=== PATIENT | male | born 1950 | race Caucasian/White ===

== ENCOUNTER → 2021-01-07 | Outpatient (CLI) | payer MEDICARE | LOC: M.ULTRA 01-04 08:00 | PROVIDERS: ATTEND Internal Medicine | DX: N28.1 Cyst of kidney, acquired (principal); I70.1 Atherosclerosis of renal artery; I77.73 Dissection of renal artery ==

== ENCOUNTER 2021-01-21 16:26 | Inpatient (IN) | payer MEDICARE ==
[~2021-01-21] VITALS: Ht 170.2 cm; Wt 105.2 kg
[2021-01-21 16:31] VITALS: BP 181/126
[2021-01-21] MEDS ORDERED: LASIX 40 MG TAB40 MG PO (16:45)
[2021-01-21] MEDS ORDERED: TRAMADOL 50 MG50 MG PO (16:45)
[2021-01-21] MEDS ORDERED: ASA81BEC PO (16:45)
[2021-01-21] MEDS ORDERED: FLONASE 0.05%50 MCG NARES (16:46)
[2021-01-21] MEDS ORDERED: NEBULIZER MISCELL (16:46)
[2021-01-21 16:47] LABS: ABSOLUTE BASOPHILS 0.1 thou/uL (0.0-0.2); ABSOLUTE LYMPHOCYTES 1.1 thou/uL (0.8-5.3); ABSOLUTE MONOCYTES 0.7 thou/uL (0.0-1.2); BASOPHILS 0.8 %; EOSINOPHILS 0.5 %; HEMATOCRIT 47.7 % (42.0-52.0); HEMOGLOBIN 16.8 gm/dL (14.0-18.0); LYMPHOCYTES 13.9 %; MCH 34.3 pg (26.0-34.0); MCHC 35.2 g/dL (28.0-37.0); MCV 97.3 fL (80.0-100.0); MONOCYTES 8.4 %; MPV 8.2 fl. (7.2-11.1); NUCLEATED RBCS 0 /100WBC; PLATELET COUNT* 198 thou/uL (150-400); POLYS 76.4 %; RBC 4.91 mil/uL (4.50-6.00); RDW-CV 13.8 % (10.5-14.5); WBC 7.9 thou/uL (4.0-11.0)
[2021-01-21 16:53] LABS: CREATININE 1.1 mg/dL (0.6-1.3); POTASSIUM 3.9 mmol/L (3.5-5.1)
[2021-01-21 17:04] LABS: MAGNESIUM 2.1 mg/dL (1.8-2.4); TOTAL BILIRUBIN 0.8 mg/dL (<0.1-1.0); TOTAL PROTEIN 7.3 g/dL (6.4-8.2)
[2021-01-21 22:00] VITALS: BP 167/108
[2021-01-22 02:10] VITALS: BP 136/93
[2021-01-22 06:03] VITALS: BP 158/95
[2021-01-22 10:00] VITALS: BP 131/96
--- NOTE | 2021-01-22 13:09 | NUR ---
Admission Assessment Admitted from AMBULANCE Mental Status upon admission A&O X3 Living Arrangements: HOUSE Lives with: or they live with patient ALONE Support system: Name Phone number Taylor SKAGGS [phone] DAUGHTER Can patient return to prior living arrangements? YES Activities of daily living: Independent Assistive device: CANE, WALKER, SHOWER CHAIR
[2021-01-22 14:00] VITALS: BP 160/109
--- NOTE | 2021-01-22 14:33 | NUR ---
BEDSIDE ECHO BEING DONE AT THIS TIME.
[2021-01-22 15:03] VITALS: BP 160/109
--- NOTE | 2021-01-22 15:27 | EKG ---
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1950 Requested By: Frantz Lunsford Order Number: [id number] MD: Marquis Das Measurements Intervals [place] Rate: 94 P: 27 MT: 181 QRS: -41 QRSD: 101 T: 1 QT: 361 QTc: 452 Interpretive Statements Sinus tachycardia Multiple premature complexes, vent & supraven Left axis deviation possible inferior scar Borderline T wave abnormalities No previous ECG available for comparison Electronically Signed On 01-22-2021 15:27:22 CDT by Marquis Das [email or web address] <ELECTRONICALLY SIGNED> By: Marquis Das MD, [facility] 01/22/21 1527 1639 1639 Marquis Das MD, [facility] /EPI
[2021-01-22] MEDS ORDERED: OSTERA TABLET1 EAC1 PO (15:44)
[2021-01-22] MEDS ORDERED: CULTURELLE KID1 EAC1 PO (15:44)
[2021-01-22] MEDS ORDERED: DULCOLAX STOOL100 M1 PO (15:45)
[2021-01-22] MEDS ORDERED: PRESERVISION A1 EACH PO (15:45)
[2021-01-22] MEDS ORDERED: GLYCOTROL CAPS1 EACH PO (15:46)
[2021-01-22] MEDS ORDERED: THERALITH XR T1 EACH PO (15:46)
[2021-01-22 16:05] VITALS: BP 174/101
--- NOTE | 2021-01-22 16:07 | NUR ---
PT ADMITTED WITH AFIB RVR, CARDEZIM DRIP RUNNING. PT ORIENTED TO ROOM. FALL RISK PRECAUTIONS IN PLACE. VITALS OBTAINED. HEART MONITOR IN PLACE.
--- NOTE | 2021-01-22 16:34 | 2DMMODE ---
[place] [address] 2 D/M-MODE ECHOCARDIOGRAM Name: NALINIMARIFER MUSTAFA Room: [address] IN [facility]#: [id number] Admission: 01/21/21 Attend Phys: Kristie Thomas, Discharge: Date of : 48 Date of Service: 01/22/21 1634 Report #: [id number] THIS REPORT FOR: cc: Shawn Coates MD, Dean L. MD Liston, Michael J. MD [facility] ~ APPROVED REPORT Study performed: 01/22/2021 14:16:07 EXAM: Comprehensive 2D, Doppler, and color-flow Echocardiogram Patient Location: In-Patient Room #: er Status: routine BSA: 2.15 HR: 82 bpm BP: 121/92 mmHg Rhythm: NSR Other Information Study Quality: Good Indications Atrial Fibrillation 2D Dimensions IVSd: 12.30 (7-11mm) LVOT Diam: 22.92 (18-24mm) LVDd: 55.74 mm PWd: 11.20 (7-11mm) Ascending Ao: 40.44 (22-36mm) LVDs: 40.26 (25-40mm) Aortic Root: 40.88 mm Volumes Left Atrial Volume (Systole) LA ESV Index: 27.80 mL/m2 Aortic Valve AoV Peak Costa.: 1.27 m/s AO Peak Gr.: 6.46 mmHg LVOT Max P.41 mmHg AO Mean Gr.: 3.59 mmHg LVOT Mean P.59 mmHg LVOT Max V: 0.92 m/s AO V2 VTI: 23.03 cm LVOT Mean V: 0.57 m/s JASEN (VTI): 3.08 cm2 LVOT V1 VTI: 17.20 [place] [address] 2 D/M-MODE ECHOCARDIOGRAM Name: MARIFER WATSON Room: [address] IN ..#: [id number] Admission: 01/21/21 Attend Phys: Kristie Thomas, Discharge: Date of : 48 Date of Service: 01/22/21 1634 Report #: [id number] Mitral Valve E/A Ratio: 0.61 MV Decel. Time: 259.42 ms MV E Max Costa.: 0.61 m/s MV PHT: 75.23 ms MVA (PHT): 2.92 cm2 TDI E/Lateral E': 12.20 E/Medial E': 12.20 Medial E' Costa.: 0.05 m/s Lateral E' Costa.: 0.05 m/s Pulmonary Valve PV Peak Costa.: 0.72 m/s PV Peak Gr.: 2.10 mmHg Left Ventricle The left ventricle is normal size. There is normal LV segmental wall motion. Mild concentric left ventricular hypertrophy. Left ventricular systolic function is normal. LVEF is 55-60%. Grade I - abnormal relaxation pattern. Right Ventricle Right ventricle is mildly dilated. The right ventricular systolic function is normal. Atria Left atrium is mildly dilated. Right atrium is mildly dilated. Aortic Valve The aortic valve is normal in structure. Mild aortic regurgitation. There is no aortic valvular stenosis. Mitral Valve The mitral valve is normal in structure. Trace mitral regurgitation. No evidence of mitral valve stenosis. Tricuspid Valve The tricuspid valve is normal in structure. Trace tricuspid regurgitation. Unable to assess PA pressure. Pulmonic Valve The pulmonary valve is normal in structure. There is no pulmonic valvular regurgitation. [place] [address] 2 D/M-MODE ECHOCARDIOGRAM Name: MARIFER WATSON Room: [address] IN [facility]#: [id number] Admission: 01/21/21 Attend Phys: Kristie Thomas, Discharge: Date of : 48 Date of Service: 01/22/21 1634 Report #: [id number] The aortic root is normal in size. The ascending aorta is mildly dilated. IVC is normal in size and collapses >50% with inspiration. Pericardium There is no pericardial effusion. <Conclusion> The left ventricle is normal size. Mild concentric left ventricular hypertrophy. Left ventricular systolic function is normal. LVEF is 55-60%. Grade I - abnormal relaxation pattern. There is normal LV segmental wall motion. Right ventricle is mildly dilated. Left atrium is mildly dilated. Right atrium is mildly dilated. Mild aortic regurgitation. Trace mitral regurgitation. Trace tricuspid regurgitation. IVC is normal in size and collapses >50% with inspiration. The ascending aorta is mildly dilated. <ELECTRONICALLY SIGNED> By: Pipo Shearer MD, FACC 01/22/21 1634 1634 1634 Pipo Shearer MD, FACC /INF
--- NOTE | 2021-01-22 17:30 | NUR ---
PT REMAINED ALERT AND ORIENTED. PT RESTING IN BED. AMIODARONE DRIP STARTED ONE TIME. AFIB ON MONITOR. FALL RISK PRECAUTIONS IN PLACE. HOURLY ROUNDING COMPLETED. CALL LIGHT WITHIN REACH.
[2021-01-23 00:42] VITALS: BP 135/91
[2021-01-23 04:00] VITALS: BP 150/99
[2021-01-23 04:42] LABS: HEMATOCRIT 49.1 % (42.0-52.0); HEMOGLOBIN 17.1 gm/dL (14.0-18.0); MCH 34.1 pg (26.0-34.0); MCHC 34.7 g/dL (28.0-37.0); MCV 98.1 fL (80.0-100.0); MPV 8.3 fl. (7.2-11.1); NUCLEATED RBCS 0 /100WBC; PLATELET COUNT* 205 thou/uL (150-400); RBC 5.01 mil/uL (4.50-6.00); RDW-CV 14.1 % (10.5-14.5); WBC 9.4 thou/uL (4.0-11.0)
[2021-01-23 04:51] LABS: POTASSIUM 4.3 mmol/L (3.5-5.1)
--- NOTE | 2021-01-23 06:30 | NUR ---
PT VOICED NO CONCERNS THIS SHIFT, AFIB ON JUICE STANDARDIZER AT START OF SHIFT. PT CONVERTED TO SR WITH PVCS PACS AT APPROX 2300. PT DENIES CHEST PAIN THIS SHIFT. HOURLY ROUDNING COMPLETED. CALL LIGHT WITHIN REACH.
[2021-01-23 07:24] LABS: ABSOLUTE LYMPHOCYTES 0.6 thou/uL (0.8-5.3); ABSOLUTE MONOCYTES 0.1 thou/uL (0.0-1.2); ABSOLUTE NEUTROPHILS 8.7 thou/uL (1.6-8.1); ANISOCYTOSIS 1+; PLATELET ESTIMATE ADEQUATE; POIKILOCYTOSIS 1+
[2021-01-23] MEDS ORDERED: XARELTO20 MG PO (07:57)
[2021-01-23] MEDS ORDERED: DOXYCYCLINE 10100 MG PO (07:59)
[2021-01-23] MEDS ORDERED: VENTOLIN HFA 1818 GM INH (07:59)
[2021-01-23] MEDS ORDERED: PROTONIX40 M4 PO (07:59)
[2021-01-23] MEDS ORDERED: PREDNISONE 10 M10 MG PO (07:59)
[2021-01-23 08:42] VITALS: BP 167/106
[2021-01-23] MEDS ORDERED: DILTIAZEM 24HR240 M1 PO (09:40)
[2021-01-23] MEDS ORDERED: PACERONE 200 M200 M1 PO (09:40)
[2021-01-23] MEDS ORDERED: CARVEDILOL3.125 MG PO (09:40)
[2021-01-23 10:18] VITALS: BP 167/106
[2021-01-23 11:53] VITALS: BP 145/88
--- NOTE | 2021-01-23 13:46 | NUR ---
Pt discharging to home today, declined HH. Await RT to complete ex ox to determine if Pt will need o2 at dc. Following
--- NOTE | 2021-01-23 14:12 | EKG ---
[place] [address] ELECTROCARDIOGRAM REPORT Name: NALINIDAMIENMARIFER FREITAS Room: [address] ADM IN M.R.#: [id number] Admission: 01/21/21 Attend Phys: Kristie Thomas, Discharge: Date of : 48 Date of Service: 01/22/21 1457 Report #: [id number] THIS REPORT FOR: //name// 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1950 Requested By: Frantz Lunsford Order Number: [id number] Radha MD: Marquis Das Measurements Intervals [place] Rate: 79 P: -86 PA: 168 QRS: -42 QRSD: 105 T: 11 QT: 439 QTc: 504 Interpretive Statements Sinus or ectopic atrial rhythm Left anterior fascicular block Abnormal R-wave progression, late transition Borderline T abnormalities, diffuse leads; ischemia must be considered Prolonged QT interval Compared to ECG 01/21/2021 16:39:05 Ectopic atrial rhythm now present Prolonged QT interval now present Sinus tachycardia no longer present T-wave abnormality still present Electronically Signed On 01-23-2021 14:12:21 CDT by Marquis Das [email or web address] <ELECTRONICALLY SIGNED> By: Marquis Das MD, [facility] 01/23/21 1412 1457 1457 Marquis Das MD, [facility] /EPI
--- NOTE | 2021-01-23 14:21 | EKG ---
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 : 1950 Requested By: Juli Veras Order Number: [id number] Reading MD: Marquis Das Measurements Intervals [place] Rate: 89 P: -44 IN: 163 QRS: -37 QRSD: 103 T: 191 QT: 369 QTc: 449 Interpretive Statements Sinus tachycardia Atrial premature complexes Left axis deviation Probable anterior infarct, age indeterminate Compared to ECG 01/22/2021 14:57:05 Atrial premature complex(es) now present Left-axis deviation now present Myocardial infarct finding now suggested Ectopic atrial rhythm no longer present T-wave abnormality no longer present Prolonged QT interval no longer present Electronically Signed On 01-23-2021 14:21:02 CDT by Marquis Das [email or web address] <ELECTRONICALLY SIGNED> By: Marquis Das MD, [facility] 01/23/21 1421 Marquis Das MD, [facility] /EPI
--- NOTE | 2021-01-23 15:55 | NUR ---
PT IS DISCHARGING HOME IV'S AND MONITOR DISCONTINUED MANY CONCERNS WITH PATIENT BUT DISCUSSED WITH HIM WAITING ON CAB TO GET HERE
[2021-01-23 15:56] VITALS: BP 167/106
== END 2021-01-23 16:35 | disposition home or self-care (01) | DRG 189 ==
LOC: M.ERS 16:26 → M.TBA-ER 17:23 → M.2W 01-22 15:25
PROVIDERS: Emergency Medicine Emergency Medical Services; Internal Medicine; ADMIT Internal Medicine; ATTEND Internal Medicine
DX: J96.01 Acute respiratory failure with hypoxia (principal); I42.9 Cardiomyopathy, unspecified; I48.20 Chronic atrial fibrillation, unspecified; J44.1 Chronic obstructive pulmonary disease with (acute) exacerbation; R04.2 Hemoptysis; J44.0 Chronic obstructive pulmonary disease with (acute) lower respiratory infection; J20.9 Acute bronchitis, unspecified; F43.10 Post-traumatic stress disorder, unspecified; F41.9 Anxiety disorder, unspecified; I71.4 Abdominal aortic aneurysm, without rupture; I50.9 Heart failure, unspecified; I25.10 Atherosclerotic heart disease of native coronary artery without angina pectoris; I11.0 Hypertensive heart disease with heart failure; E78.5 Hyperlipidemia, unspecified; F31.9 Bipolar disorder, unspecified; Z20.822 Contact with and (suspected) exposure to COVID-19; Z86.73 Personal history of transient ischemic attack (TIA), and cerebral infarction without residual deficits; Z79.899 Other long term (current) drug therapy; Z79.82 Long term (current) use of aspirin; Z88.0 Allergy status to penicillin; Z88.7 Allergy status to serum and vaccine; Z87.891 Personal history of nicotine dependence

== ENCOUNTER → 2021-07-08 | Outpatient (CLI) | payer MEDICARE ==
[~2021-07-08] MED LIST: ASA81BEC PO; CARVEDILOL3.125 MG PO; CULTURELLE KID1 EAC1 PO; DILTIAZEM 24HR240 M1 PO; DOXYCYCLINE 10100 MG PO; DULCOLAX STOOL100 M1 PO; FLONASE 0.05%50 MCG NARES; GLYCOTROL CAPS1 EACH PO; LASIX 40 MG TAB40 MG PO; NEBULIZER MISCELL; OSTERA TABLET1 EAC1 PO; PACERONE 200 M200 M1 PO; PREDNISONE 10 M10 MG PO; PRESERVISION A1 EACH PO; PROTONIX40 M4 PO; THERALITH XR T1 EACH PO; TRAMADOL 50 MG50 MG PO; VENTOLIN HFA 1818 GM INH; XARELTO20 MG PO
== END ==
LOC: M.ULTRA 08:10
PROVIDERS: ATTEND Internal Medicine
DX: I70.1 Atherosclerosis of renal artery (principal); I10 Essential (primary) hypertension

== ENCOUNTER → 2021-07-15 | Outpatient (CLI) | payer MEDICARE ==
[2021-07-15 08:28] LABS: CREATININE 1.2 mg/dL (0.6-1.3)
== END ==
LOC: M.LAB 07-10 08:58
PROVIDERS: ATTEND Internal Medicine
DX: Z01.812 Encounter for preprocedural laboratory examination (principal); I71.4 Abdominal aortic aneurysm, without rupture; J98.11 Atelectasis; K44.9 Diaphragmatic hernia without obstruction or gangrene; N28.1 Cyst of kidney, acquired; I70.1 Atherosclerosis of renal artery; I10 Essential (primary) hypertension